=== PATIENT | female | born 1990 | race African-American/Black ===

== ENCOUNTER 2016-06-28 15:23 | Emergency (ER) | payer OTHER ==
[~2016-06-28] VITALS: Ht 154.9 cm; Wt 104.3 kg
[~2016-06-28 15:23] MED LIST: ADVAIR HFA115 MCG/21 INH; AUGMENTIN 875875 MG PO; AVELOX400 MG PO; BENADRYL25 MG PO; DERMOPLAST SPRA56 ML; FLAGYL500 MG PO; FLEXERIL PO; FLONASE 0.05%50 MCG NASAL; FLOVENT HFA 2220 MCG INH; HYDROCHLOROTH12.5 M1 PO; IBUPROFEN 600600 M1 PO; IBUPROFEN 800800 M1 PO; IRON325 PO; NAPROSYN500 MG PO; NIFEDIPINE20 MG PO; NORCO 5-325 TA1 EACH PO; ONDANSETRON HCL4 M2 PO; PENICILLIN VK500 MG PO; PERCOCET 5-3251 EACH PO; PRENATAL PO; PROAIR HFA8.5 GM; PROAIR HFA8.5 GM IH; PROCARDIA XL30 MG PO; PROCARDIA XL90 MG PO; PROMETHAZINE-C120 ML PO; PROPRANOLOL 8080 M1 PO; PROVENTIL PO; TRAMADOL 50 MG50 MG PO; TUCKS MEDICATE1 EAC1; ULTRAM 50MG TAB50 MG PO; UNK BP MED; VENTOLIN HFA 1818 GM INH; ZOFRAN ODT4 MG PO; ZPAK PO
[2016-06-28] MEDS ORDERED: ADVAIR HFA115 MCG/21 INH (15:32)
[2016-06-28] MEDS ORDERED: VENTOLIN HFA 1818 GM INH (15:43)
[2016-06-28 16:52] VITALS: BP 175/125
== END 2016-06-28 16:53 | disposition home or self-care (01) ==
LOC: ER 15:23
DX: J45.901 Unspecified asthma with (acute) exacerbation (principal); I10 Essential (primary) hypertension; Z76.0 Encounter for issue of repeat prescription; Z91.010 Allergy to peanuts; Z91.013 Allergy to seafood; Z88.6 Allergy status to analgesic agent

== ENCOUNTER 2017-12-18 15:06 | Emergency (ER) | payer OTHER ==
[~2017-12-18] VITALS: Ht 154.9 cm; Wt 105.2 kg
[2017-12-18] MEDS ORDERED: ZOFRAN ODT4 MG PO (16:40)
[2017-12-18] MEDS ORDERED: NORCO 5-325 TA1 EACH PO (16:40)
[2017-12-18] MEDS ORDERED: PROMS25 WY RECTAL (17:13)
[2017-12-18 18:12] LABS: ABSOLUTE NEUTROPHILS 14.3 thou/uL (1.4-8.2); BASOPHILS 0.6 % (0.0-2.0); EOSINOPHILS 0.4 % (0.0-3.0); HEMATOCRIT 40.2 % (37.0-47.0); LYMPHOCYTES 9.9 % (24.0-44.0); MCH 25.5 pg (26.0-34.0); MCHC 32.4 g/dL (28.0-37.0); MCV 78.8 fL (80.0-100.0); MONOCYTES 4.5 % (1.0-8.0); PLATELET COUNT 408 thou/uL (150-400); POLYS 84.6 % (36.0-66.0); RDW 15.8 % (10.5-14.5); WBC 16.9 thou/uL (4.0-11.0)
[2017-12-18 18:17] LABS: CALCIUM 9.6 mg/dL (8.5-10.1); CREATININE 0.7 mg/dL (0.6-1.0); POTASSIUM 3.9 mmol/L (3.5-5.1)
[2017-12-18 20:05] VITALS: BP 116/71
== END 2017-12-18 20:06 | disposition home or self-care (01) ==
LOC: ER 15:06
PROVIDERS: Emergency Medicine
DX: S39.91XA Unspecified injury of abdomen, initial encounter (principal); D72.829 Elevated white blood cell count, unspecified; D36.9 Benign neoplasm, unspecified site; J45.909 Unspecified asthma, uncomplicated; I10 Essential (primary) hypertension; Z91.013 Allergy to seafood; Z91.010 Allergy to peanuts; Z88.8 Allergy status to other drugs, medicaments and biological substances; W10.9XXA Fall (on) (from) unspecified stairs and steps, initial encounter; Y93.89 Activity, other specified; Y92.89 Other specified places as the place of occurrence of the external cause; Y99.8 Other external cause status